=== PATIENT | female | born 1950 | race Caucasian/White ===

== ENCOUNTER → 2016-04-06 | Outpatient (CLI) | payer MEDICARE ==
[~2016-04-06] MED LIST: ALBUTEROL17 GM INH; ANTIVERT PO; BP PILL; CARAFATE PO; EFFEXOR; EFFEXOR XR PO; FLUCONAZOLE150 M1 PO; GLUCOPHAGE500 M1 PO; HORMONE; KLONOPIN; KLONOPIN PO; MACROBID100 MG PO; MEDROL4 MG/DOSE- PO; MEGESTROL ACETA40 MG PO; METFORMIN PO; NEXIUM PO; TESSALON200 MG PO; VIBRAMYCIN100 M1 PO; ZESTRIL10 M1 PO; ZESTRIL5 MG PO; ZOFRAN ODT4 MG PO; [UNRECOGNIZED DRUG - OTHER]
--- NOTE | ~2016-04-06 | MY11 ---
[facility] A Service [facility] RADIOLOGY TEXT RESULTS PATIENT: BHARGAVI ARREDONDO LOCATION: [facility] : 46 UNIT #: [id number] AGE: [address]: Aleida Alaniz APRN SEX: F ORDER DR: [id number] [place] [id number] O MR#: [id number] Acc #: [id number] NAME: BHARGAVI ARREDONDO : 1950 SEX: F STUDY DATE/TIME: 04/06/2016 9:30 UNIT: [facility] ROOM: STUDY DESCRIPTION: MY Mammogram Screening Dig [place] Attending Physician: Aleida Alaniz A.P.R.N. Referring Physician: Aleida Alaniz A.P.R.N. Ordering Physician: Aleida Alaniz A.P.R.N. Primary Care Physician: Aleida Alaniz A.P.R.N. MEDICAL IMAGING REPORT This report is preliminary unless electronic signature is present. EXAM Digital screening mammogram with CAD INDICATIONS Routine screening. PROCEDURE Bilateral CC and MLO views obtained on a digital mammography unit FDA-approved CAD device was utilized. COMPARISON None FINDINGS Scattered fiber nodular density. No dominant mass or suspicious calcification. IMPRESSION Negative screening mammogram, screen interval 1 year is suggested. Patients over the age of 40 are entered into a reminder system with target due date for the next mammogram. A result letter will also be sent to the patient. BIRADS: 1 - negative Dictated by... Rian Castro M.D. THIS IS AN ELECTRONICALLY VERIFIED REPORT Rian Castro M.D. at 04/07/2016 7:[address] [facility] A Service [facility] RADIOLOGY TEXT RESULTS PATIENT: BHARGAVI ARREDONDO LOCATION: [facility] : 46 UNIT #: [id number] AGE: [address]: Aleida Alaniz APRN SEX: F ORDER DR: Kolby TD: 04/06/2016 11:14 JOB #: [id number] MEDICAL IMAGING REPORT
== END | disposition home or self-care (01) ==
LOC: SMAM 08:47
DX: Z12.31 Encounter for screening mammogram for malignant neoplasm of breast (principal)
CPT/HCPCS: G0202

== ENCOUNTER 2016-04-16 23:26 | Emergency (ER) | payer MEDICARE ==
--- NOTE | ~2016-04-16 | CR63 ---
[facility]. [facility] A Service of [facility] RADIOLOGY TEXT RESULTS PATIENT: BHARGAVI ARREDONDO LOCATION: SED : 46 UNIT #: [id number] AGE: [address]: Vance Lewis MD SEX: F ORDER DR: [id number] [place] [id number] E MR#: [id number] Acc #: [id number] NAME: BHARGAVI ARREDONDO : 1950 SEX: F STUDY DATE/TIME: 04/17/2016 0:21 UNIT: SED ROOM: STUDY DESCRIPTION: CR Chest 2 View Attending Physician: Vance Lewis M.D. Ordering Physician: Vance Lewis M.D. Primary Care Physician: Aleiad Alaniz A.P.R.N. MEDICAL IMAGING REPORT This report is preliminary unless electronic signature is present. EXAM PA and lateral chest. DATE OF EXAM 04/17/2016 at 00:21. HISTORY 66-year-old female with hypertension today. Previous history of mitral valve prolapse. Hypertension. Previous cerebrovascular accident. COMPARISON PA and lateral chest, 12/15/2013. FINDINGS No acute airspace disease. Heart size is within normal limits. Mild thoracic kyphosis. No pleural effusion. No pneumothorax. IMPRESSION No acute cardiopulmonary findings. Dictated by... Rosa Goff M.D. THIS IS AN ELECTRONICALLY VERIFIED REPORT Rosa Goff M.D. at 04/17/2016 10:47 PM JORDAN/franco TD: 04/17/2016 20:20 JOB #: [id number] MEDICAL IMAGING REPORT
--- NOTE | ~2016-04-16 | EKG ---
PATIENT: BHARGAVI ARREDONDO UNIT #: [id number] Ventricular Rate: 72 BPM Atrial Rate: 72 BPM P-R Interval: 174 ms QRS Duration: 86 ms Q-T Interval: 408 ms QTC Calculation(Bezet): 446 ms P [employer] [place]: 31 degrees Calculated R [employer] [place]: 50 degrees Calculated T [employer] [place]: 56 degrees Diagnosis Line: Normal sinus rhythm Diagnosis Line: Normal ECG Diagnosis Line: When compared with ECG of 11-JAN-2015 00:30, Diagnosis Line: No significant change was found Diagnosis Line: Confirmed by PRISCA LEWIS MD ([id number]) on Diagnosis Line: 04/19/2016 3:29:56 PM INTERPRETING MD: JOSHUA CAMACHO
[2016-04-16 23:34] LABS: BASOPHIL# 0.1 X10e3 (0-0.3); BASOPHIL% 0.8 % (0-2.5); EOSINOPHIL# 0.1 X10e3 (0-0.7); EOSINOPHIL% 0.9 % (0.0-7.0); HEMATOCRIT 39.9 % (35.0-45.0); LYMPHOCYTE% 10.8 % (17.0-45.0); MEAN CELL VOLUME 78.3 FL (83-96); MEAN CORPUSCULAR HEMOGLOBIN 25.5 PG (28-34); MEAN CORPUSCULAR HGB CONC 32.6 g/dL (30-36); MEAN PLATELET VOLUME 9.9 FL (6.5-11.5); MONOCYTE# 0.4 X10e3 (0-1.0); MONOCYTE% 4.1 % (3.0-12.0); NEUTROPHIL# 7.7 X10e3 (1.5-7.1); NEUTROPHIL% 83.4 % (40-75); PLATELET COUNT 226 X10e3 (140-420); RED CELL DISTRIBUTION WIDTH 14.8 % (11.0-15.5); WHITE BLOOD COUNT 9.3 X10e3 (4.0-10.5)
[2016-04-16 23:35] LABS: DIFF IND NO
[2016-04-16 23:52] LABS: ALBUMIN SERUM 4.2 g/dL (3.5-5.0); ALKALINE PHOSPHATASE 80 U/L (32-92); ALT (SGPT) 17 U/L (10-40); AST (SGOT) 21 U/L (10-42); BILIRUBIN, DIRECT 0.1 mg/dL (0.0-0.2); BILIRUBIN,INDIRECT 0.7 mg/dL (0.0-0.9); BILIRUBIN,TOTAL 0.8 mg/dL (0.2-2.0); BLOOD UREA NITROGEN 13 mg/dL (9-23); BUN/CREATININE RATIO 18.57; CALCIUM SERUM 9.4 mg/dL (8.4-10.2); CARBON DIOXIDE 27 mmol/L (22-31); CHLORIDE 102 mmol/L (100-111); CREATININE SERUM 0.7 mg/dL (0.6-1.4); GLOM FILT RATE Estimated ABOVE60 mL/min (>60); GLUCOSE FASTING 182 mg/dL (70-110); PROTEIN TOTAL SERUM 7.7 g/dL (6.0-8.3); SODIUM 136 mmol/L (135-145)
[2016-04-17 00:09] LABS: POC - CKMB <1.0 ng/mL (0.0-7.9)
[2016-04-17 00:10] LABS: POC - MYOGLOBIN 42.6 ng/mL (0.0-169.0); POC - TROPONIN <0.05 ng/mL (<=0.05)
== END 2016-04-17 01:19 | disposition home or self-care (01) ==
LOC: SED 23:26
PROVIDERS: Emergency Medicine
DX: I16.0 Hypertensive urgency (principal); E11.9 Type 2 diabetes mellitus without complications; Z86.73 Personal history of transient ischemic attack (TIA), and cerebral infarction without residual deficits; Z90.49 Acquired absence of other specified parts of digestive tract; Z88.8 Allergy status to other drugs, medicaments and biological substances; Z79.899 Other long term (current) drug therapy; Z79.84 Long term (current) use of oral hypoglycemic drugs
CPT/HCPCS: 36415; 71020; 80048; 80076; 82553; 83874; 84484; 85025; 93005; 96374; 96375; 99284; J2405